=== PATIENT | male | born 1935 | race Caucasian/White ===

== ENCOUNTER 2020-09-13 13:08 | Outpatient (REF) | payer OTHER, SELFPAY ==
--- NOTE | 2020-09-13 15:52 | MHC.AU.P13 ---
Adult Audiological Evaluation Date of Visit: 09/13/20 Reason for Appointment: Audiological re-evaluation to monitor the status of his hearing loss. Mr. Sorensen denies any significant changes to his hearing or medical history. He notes that the left aid doesn't seem like it's working as well, possibly due to wax build-up. 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: [employer] (TEN) Model: Audeo M90-312 Serial Number: [id number] Battery Size: 312 Warranty: 01/11/2022 Dispensed By: [facility] Date of Fittin10/19/2018 Hearing Instrument History- Left Ear: Opera Singer: [employer] Model: Audeo M90-312 Serial Number: [id number] Battery Size: 312 Warranty: 01/11/2022 Dispensed By: [facility] Date of Fittin10/19/2018 Otoscopy: Right Ear: Partially occluded with cerumen Left Ear: Partially occluded with cerumen Tympanometry: Right Ear: Hypercompliant Middle Ear System (Type Ad) Left Ear: Normal Middle Ear System (Type A) Hearing Evaluation: Transducer(s) Used: Circumaural Headphones, Bone Conduction Method: Conventional Audiometry Stimuli Used: Pure Tones Right Ear: Description of Hearing: Normal hearing at 250 Hz, sloping to a mild to moderately severe sensorineural hearing loss from 500-8000 Hz. Left Ear: Description of Hearing: Normal hearing at 250 Hz, sloping to a mild to severe sensorineural hearing loss from 500-8000 Hz. Speech Recognition Threshold (SRT): Method Used: Monitored Live Voice Stimuli Used: Spondee Words Right Ear: 30 dBHL Left Ear: 30 dBHL Word Discrimination: Method: Recorded Lists Word Lists Used: NU-6 Right Ear: 88% at 70 dBHL Left Ear: 84% at 70 dBHL Comparison: Compared to the most recent evaluation: Hearing is stable. Recommendations: Recommendations: Audiological re-evaluation in one year. Recommendations (Other): Recommend use of Ear Wax M.D. or similar ear wax drops to aid in cerumen removal. Hearing aid maintenance was performed and aids are in good working condition. Diagnosis: Primary Diagnosis: H90.3 Bilateral Sensorineural Hearing Loss Services Performed: Services Performed: Comprehensive Audiological Evaluation (CPT 73800) Tympanometry (CPT 92333) Signature: Provider: Shakila Morales, CCC-A
== END 2020-09-13 13:09 | disposition home or self-care (01) ==
LOC: HO.SH 13:08
PROVIDERS: Visit Provider Internal Medicine
DX: H90.3 Sensorineural hearing loss, bilateral (principal)
CPT/HCPCS: 92557; 92567

== ENCOUNTER 2020-11-20 09:04 | Outpatient (REF) | payer SELFPAY | END 2020-11-20 09:05 | disposition home or self-care (01) | LOC: HO.HAP 09:04 | PROVIDERS: Visit Provider Internal Medicine | DX: Z13.89 Encounter for screening for other disorder (principal) ==

== ENCOUNTER 2021-03-28 11:18 | Outpatient (REF) | payer SELFPAY | END 2021-03-28 11:19 | disposition home or self-care (01) | LOC: HO.HAP 11:18 | PROVIDERS: Visit Provider Internal Medicine | DX: H90.3 Sensorineural hearing loss, bilateral (principal) | CPT/HCPCS: 92700 ==

== ENCOUNTER 2021-09-09 08:55 | Outpatient (REF) | payer OTHER, SELFPAY ==
--- NOTE | 2021-09-09 10:08 | MHC.AU.AHA ---
Adult Audiological Evaluation Date of Visit: 09/09/21 Reason for Appointment: Audiological evaluation due to concern for decreased hearing. Mr. Sorensen has a known bilateral, sensorineural hearing loss and uses hearing aids binaurally. He notes that he's been having some problems with clarity, and finds that he misses parts of what people are saying. He also reports difficulties hearing the TV clearly. Previous Hearing Test [place] [facility] [place]- Normal hearing at 250 Hz, sloping to a mild to moderately-severe/severe sensorineural hearing loss bilaterally. 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: [employer] Model: AudApp Annie M90-312 Serial Number: [id number] Battery Size: 312 Repair Warranty: 01/11/2022 Loss and Damage Warranty: 01/11/2022 Dispensed By: [facility] Date of Fittin10/19/2018 Hearing Instrument History- Left Ear: Dye House Supervisor: [employer] Model: AudApp Annie M90-312 Serial Number: [id number] Battery Size: 312 Warranty: 01/11/2022 Loss and Damage Warranty: 01/11/2022 Dispensed By: [facility] Date of Fittin10/19/2018 Otoscopy: Right Ear: Unremarkable Left Ear: Partially occluded with cerumen Tympanometry: Tympanometry performed due to: To assess integrity of the middle ear system Right Ear: Hypercompliant Middle Ear System (Type Ad) Left Ear: Normal Middle Ear System (Type A) Hearing Evaluation: Transducer(s) Used: Insert Earphones, Bone Conduction Method: Conventional Audiometry Stimuli Used: Pure Tones Right Ear: Description of Hearing: Mild sloping to moderately-severe sensorineural hearing loss from 250-8000 Hz. Left Ear: Description of Hearing: Mild sloping to moderately-severe sensorineural hearing loss from 250-8000 Hz. Speech Recognition Threshold (SRT): Method Used: Monitored Live Voice Stimuli Used: Spondee Words Right Ear: 35 dBHL Left Ear: 35 dBHL Word Discrimination: Method: Recorded Lists Word Lists Used: NU-6 Right Ear: 92% at 75 dBHL Left Ear: 88% at 75 dBHL Comparison: Compared to the most recent evaluation: Hearing is stable. Recommendations: Audiological re-evaluation in one year. Hearing aid maintenance performed today. Hearing aids reprogrammed with updated test results. Diagnosis: Primary Diagnosis: H90.3 Bilateral Sensorineural Hearing Loss Services Performed: Comprehensive Audiological Evaluation (CPT 56028) Tympanometry (CPT 14095) Signature: Provider: Shakila Morales, CCC-A
== END 2021-09-09 08:56 | disposition home or self-care (01) ==
LOC: HO.SH 08:55
PROVIDERS: Visit Provider Internal Medicine
DX: H90.3 Sensorineural hearing loss, bilateral (principal)
CPT/HCPCS: 92557; 92567

== ENCOUNTER 2022-04-08 13:09 | Outpatient (REF) | payer SELFPAY | END 2022-04-08 13:10 | disposition home or self-care (01) | LOC: HO.HAP 13:09 | PROVIDERS: Visit Provider Internal Medicine | DX: Z46.1 Encounter for fitting and adjustment of hearing aid (principal); H90.3 Sensorineural hearing loss, bilateral | CPT/HCPCS: V5014 ==

== ENCOUNTER 2022-10-21 13:17 | Outpatient (REF) | payer OTHER, SELFPAY | END 2022-10-21 13:18 | disposition home or self-care (01) | LOC: HO.SH 13:17 | PROVIDERS: Visit Provider Internal Medicine | DX: Z01.118 Encounter for examination of ears and hearing with other abnormal findings (principal); H91.90 Unspecified hearing loss, unspecified ear | CPT/HCPCS: 92557; 92567 ==

== ENCOUNTER 2022-10-21 14:18 | Outpatient (REF) | payer SELFPAY | END 2022-10-21 14:19 | disposition home or self-care (01) | LOC: HO.HAP 14:18 | PROVIDERS: Visit Provider Internal Medicine | DX: Z46.1 Encounter for fitting and adjustment of hearing aid (principal); H90.3 Sensorineural hearing loss, bilateral; H61.23 Impacted cerumen, bilateral | CPT/HCPCS: 92700 ==

== ENCOUNTER 2025-03-15 08:39 | Outpatient (REF) | payer SELFPAY ==
--- OUTSIDE RECORDS SUMMARY | 2025-03-15 09:02 | XMS_ITS ---
Author Name [facility] Organization Unknown History of Medication Use Medication Directions Dispensed Refills Start Date End Date Stat us acetaminophen (TYLENOL) 325 MG tablet Take 3 tablets (975 mg total) by mouth every 8 (eight) hours around the clock. 01/29/2024 02/13/2024 active polyethylene glycol (miraLAx) 17 g packet Take 1 packet (17 g total) by mouth daily. 01/29/2024 02/13/2024 active TiZANidine (ZANAFLEX) 2 MG capsule Take 1 capsule (2 mg total) by mouth 3 (three) times a day. 01/29/2024 active Problems Problem Status Onset Date Problem Type Date of Resolution Source Primary osteoarthritis of right knee active EncounterDiagnosisAct [facility] Status post left knee replacement active EncounterDiagnosisAct [facility] Primary osteoarthritis of left knee active ProblemAct [facility] Encounters Encounter Type Encounter Reason Primary Diagnosis Location Date Ambulatory [facility] 06/20/2024 Ambulatory Presence of left artificial knee joint Presence of left artificial knee joint [facility] 06/20/2024 Ambulatory Follow-up Follow-up [facility] 03/21/2024 Ambulatory [facility] 02/08/2024 Ambulatory Presence of left artificial knee joint Presence of left artificial knee joint [facility] 02/08/2024 Ambulatory [facility] 01/29/2024 Ambulatory Unilateral primary osteoarthritis, left knee Unilateral primary osteoarthritis, left knee [facility] 01/28/2024 Ambulatory Encounter for other preprocedural examination Encounter for other preprocedural examination [facility] 01/14/2024 Ambulatory Unilateral primary osteoarthritis, left knee Unilateral primary osteoarthritis, left knee [facility] 12/07/2023 Ambulatory Unilateral primary osteoarthritis, left knee Unilateral primary osteoarthritis, left knee [facility] 12/07/2023 Ambulatory Unilateral primary osteoarthritis, left knee Unilateral primary osteoarthritis, left knee [facility] 10/26/2023 Ambulatory Unilateral primary osteoarthritis, left knee Unilateral primary osteoarthritis, left knee [facility] 10/26/2023 Care Team Organization Name Specialty Phone Email Start Date End Da tye [facility] 10/26/2023 12/13/2024 [facility] 10/26/2023 [facility] 10/21/2023
--- NOTE | 2025-03-15 09:50 | MHC.AU.HA3 ---
Hearing Instrument Follow-Up- Binaural Date of Visit: 03/15/25 Right Ear: Dmitry, Model, Color, Serial Number: Elizabeth Banks [id number] SN: [id number] Color: Graphite [place] Pilot Plant Operator Helper Repair Warranty: 01/11/2022 Pilot Plant Operator Helper Loss and Damage Warranty: 01/11/2022 Battery Size: 312 Utilization Supervisor/Slim Tube: 1M Earmold/Dome/CShell/SlimTip:Medium vented dome (no retention tail) Type of Wax Guard: CeruStop Dispensed By: [facility] Date of Fittin10/19/2018 Left Ear: Dmitry, Model, Color, Serial Number: Elizabeth Banks [id number] SN: [id number] Color: Graphite [place] Pilot [employer] Operator Helper Repair Warranty: 01/11/2022 Pilot Plant Operator Helper Loss and Damage Warranty: 01/11/2022 Battery Size: 312 Utilization Supervisor/Slim Tube: 1M [place]old/Dome/CShell/SlimTip: Medium vented dome (no retention tail) Type of Wax Guard: CeruStop Dispensed By: [facility] Date of Fittin10/19/2018 Follow-Up Summary: Right associate store director broken in two pieces; left STEIN not working due to occluded wax guard but Carson had difficulty removing with CeruShield disk. Cleaned both HAs. Replaced both receivers to 5 receivers (did not have 1M 4.0 associate store director in stock so replaced left associate store director as courtesy so both HAs have same wax guard system). Instructed how to change CeruStop. Replaced domes. Vacuumed microphones. Ran through dehumidifier. Listening check demonstrated HAs amplifying clearly. Carson inquired about updated hearing test, advised need order from PCP. Recommendations: Hearing instrument follow-up or maintenance as needed. Please contact our clinic with any questions or concerns. Diagnosis Code(s): Primary Diagnosis: H90.3 Bilateral Sensorineural Hearing Loss Signature: Provider: Addy Anne, [facility]
== END 2025-03-15 08:40 | disposition home or self-care (01) ==
LOC: HO.HAP 08:39
PROVIDERS: Visit Provider Internal Medicine
DX: Z46.1 Encounter for fitting and adjustment of hearing aid (principal); H90.3 Sensorineural hearing loss, bilateral
CPT/HCPCS: V5299